=== PATIENT | male | born 1995 | race Caucasian/White ===

== ENCOUNTER 2016-11-20 19:54 | Emergency (ER) | payer OTHER ==
[2016-11-20] MEDS ORDERED: fentaNYL 100 MCG/2 ML INJ ONE (20:01)
[2016-11-20 20:03] VITALS: TEMP 97.9; O2SAT 98
[2016-11-20] MEDS ORDERED: fentaNYL 100 MCG/2 ML INJ IVP ONE (20:07)
[2016-11-20] MEDS ORDERED: KETOROLAC 15 MG/1 ML SDV IVP ONE (20:40)
[2016-11-20 21:05] VITALS: BP 135/88; PULSE 91; RESP 14
--- NOTE | 2016-11-20 21:05 | EDPHY ---
H & P Smoking Status: Never smoked Time Seen by Provider: 11/20/16 20:00 HPI/ROS: CHIEF COMPLAINT: Right patellar dislocation HISTORY OF PRESENT ILLNESS: 21-year-old male presents emergency department by ambulance with a dislocated right patella. Patient was playing soccer today when he kicked in twisted and had a patellar dislocation. Patient reports he dislocated his left patella previously. He denies previous injury to this right leg. No numbness or tingling to his leg. He received 200 mcg of fentanyl in the ambulance. He denies other complaints. No head strike. REVIEW OF SYSTEMS: A comprehensive 10 point review of systems is otherwise negative aside from elements mentioned in the history of present illness. (Jolly Maher) Physical Exam: GEN: Awake, alert, oriented, no acute distress RESP: nl resp effort MSK: Right knee in a flexed position with patella dislocated laterally, sensation intact to light touch, 2+ pedal pulses SKIN: No break in skin (Jolly Maher) Constitutional: Initial Vital Signs Temperature (C) 36.6 C 11/20/16 20:00 Heart Rate 80 11/20/16 20:00 Respiratory Rate 14 11/20/16 20:00 Blood Pressure 154/95 H 11/20/16 20:00 O2 Sat (%) 98 11/20/16 20:00 O2 Delivery Mode Room Air Allergies/Adverse Reactions: No Known Allergies Allergy (Unverified 11/20/16 19:58) Home Medications: Medication Instructions Recorded NK [No Known Home Meds] 11/20/16 MDM/Departure - [facility] Imaging: I viewed and interpreted images myself - [facility] Procedures: Procedure: Dislocation reduction. Indication: Dislocation of the right patella. Risks, benefits, alternatives discussed with the patient. Consent was obtained. The right patella was reduced by fully extending the patient's leg and manually lightly pushing the patella medially. The patient has a normal neurovascular exam distal to the injury post reduction. Patient tolerated the procedure well and is significantly more comfortable. Post reduction x-ray demonstrates reduction of the joint to the anatomic position. The procedure was performed by myself. (Jolly Maher) Medications Given: Discontinued Medications Fentanyl (Sublimaze) 100 mcg IVP EDNOW ONE Stop: 11/20/16 20:08 Last Admin: 11/20/16 20:00 Dose: 100 mcg Ketorolac Tromethamine (Toradol) 15 mg IVP EDNOW ONE Stop: 11/20/16 20:41 Last Admin: 11/20/16 20:57 Dose: 15 mg ED Course/Re-evaluation: I did not see this patient while he was in the emergency department. However his care was discussed with the nurse practitioner while the patient was in the department. I agree with treatment plan and management (Anmol Shepherd) - Depart Disposition: Home, Routine, Self-Care Clinical Impression: Dislocation of right patella Condition: Good Instructions: Patellar Dislocation (ED) Additional Instructions: Rest, ice, elevate, take 600 mg of ibuprofen every 8 hours with food for 3-5 days. Wear knee immobilizer at all times. Follow up with the orthopedist at 1st available appointment, call tomorrow to schedule this. Referrals: Ramon Westbrook MD [Medical Doctor] - As per Instructions
== END 2016-11-20 21:19 | disposition home or self-care (01) ==
PROC: 0QSDXZZ Reposition Right Patella, External Approach (ICD-10-PCS; principal; 2016-11-20)
DX: S83.004A Unspecified dislocation of right patella, initial encounter (principal); W22.8XXA Striking against or struck by other objects, initial encounter; Y92.322 Soccer field as the place of occurrence of the external cause; Y99.8 Other external cause status; Y93.66 Activity, soccer
CPT/HCPCS: 96374; J1885; J3010; L1830